=== PATIENT | male | born 1955 | race Caucasian/White ===

== ENCOUNTER → 2023-03-19 | Outpatient (CLI) | payer OTHER | END | disposition home or self-care (01) | LOC: RAH 12:43 | PROVIDERS: ATTEND Internal Medicine Critical Care Medicine | DX: I35.8 Other nonrheumatic aortic valve disorders (principal); I51.7 Cardiomegaly; I65.23 Occlusion and stenosis of bilateral carotid arteries; R09.89 Other specified symptoms and signs involving the circulatory and respiratory systems; Z95.2 Presence of prosthetic heart valve | CPT/HCPCS: 93306; 93880 ==

== ENCOUNTER 2023-04-01 05:44 | Day surgery (SDC) | payer OTHER ==
[~2023-04-01] VITALS: Ht 170.2 cm; Wt 83.9 kg
[2023-04-01] VITALS (9 sets, daily range): BP systolic 108–145; BP diastolic 58–75; PULSE 53–64; RESP 13–19
[~2023-04-01 05:44] MED LIST: ATOR10 PO; ENOX80DI8 SQ; LEVO125C4 PO; WARF-57 PO
[2023-04-01] MEDS ORDERED: PROPOFOL 10 MG/ML 20ML VIAL IV ONE (07:39)
== END 2023-04-01 08:50 | disposition home or self-care (01) ==
LOC: DAH 05:44 → ENDO 05:44
PROVIDERS: ATTEND Internal Medicine Gastroenterology
DX: R19.5 Other fecal abnormalities (principal); D12.2 Benign neoplasm of ascending colon; K64.8 Other hemorrhoids; E03.9 Hypothyroidism, unspecified; E78.5 Hyperlipidemia, unspecified; Z95.2 Presence of prosthetic heart valve; Z79.01 Long term (current) use of anticoagulants; Z82.5 Family history of asthma and other chronic lower respiratory diseases; Z72.89 Other problems related to lifestyle; Z87.891 Personal history of nicotine dependence; Z79.899 Other long term (current) drug therapy; Z79.890 Hormone replacement therapy; Z98.890 Other specified postprocedural states
CPT/HCPCS: 45380; J2704; A4620; A4215 ×2; A4223; A7002; A4222; A4221; A4663; A4216; J7030; A4606; J3490